=== PATIENT | female | born 1980 | race Caucasian/White ===

== ENCOUNTER 2016-09-28 15:54 | Emergency (ER) | payer BC, MEDICARE | END 2016-09-28 18:03 | disposition home or self-care (01) | LOC: ER 15:54 | DX: S02.81XA Fracture of other specified skull and facial bones, right side, initial encounter for closed fracture (principal); R11.0 Nausea; Z79.899 Other long term (current) drug therapy; W01.0XXA Fall on same level from slipping, tripping and stumbling without subsequent striking against object, initial encounter; Y92.009 Unspecified place in unspecified non-institutional (private) residence as the place of occurrence of the external cause ==